=== PATIENT | male | born 1980 | race Two or more races ===

== ENCOUNTER 2017-01-08 07:35 | Emergency (ER) | payer OTHER ==
[~2017-01-08] VITALS: Ht 172.7 cm; Wt 80.3 kg
[2017-01-08 07:39] VITALS: BP 120/74
--- NOTE | 2017-01-08 07:48 | NUR ---
PATIENT PRESENTS TO ED WITH C/O COUGH, SORE THROAT, LEFT EAR ACHE X2 DAYS'. DENIES N/V/D; SKIN IS PINK/WARM/DRY; AAOX4 WITH EVEN AND STEADY GAIT; LUNGS CLEAR BL; HR EVEN AND REGULAR; PT DENIES ANY FEVER, CP, SOB AT THIS TIME. PATIENT POSITIONED FOR COMFORT; HOB ELEVATED; BEDRAILS UP X2; BED DOWN. NEEDS ATTENDED.SAFETY PRECAUTION INSTITUTED.ER MADE AWARE OF PT STATUS.WILL CONTINUE TO MONITOR PT.
--- NOTE | 2017-01-08 07:48 | NUR ---
PT TAKEN TO BED 4.
--- NOTE | 2017-01-08 08:06 | NUR ---
Patient discharged with v/s stable. Written and verbal after care instructions given and explained. Patient alert, oriented and verbalized understanding of instructions. Ambulatory with steady gait. All questions addressed prior to discharge. ID band removed. Patient advised to follow up with PMD. Rx of MOTRIN,SUDAFED AND CORTISPORIN OTIC SUSPENSION. given. Patient educated on indication of medication including possible reaction and side effects. Opportunity to ask questions provided and answered.
[2017-01-08 08:07] VITALS: BP 103/75
== END 2017-01-08 08:06 | disposition home or self-care (01) ==
LOC: MED 07:35
DX: H60.92 Unspecified otitis externa, left ear (principal); J06.9 Acute upper respiratory infection, unspecified

== ENCOUNTER 2017-09-06 09:37 | Outpatient (CLI) | payer OTHER | END 2017-09-06 20:49 | disposition home or self-care (01) | LOC: MLB 09:37 | PROVIDERS: ATTEND Family Medicine | DX: R35.8 Other polyuria (principal); L25.9 Unspecified contact dermatitis, unspecified cause; R68.89 Other general symptoms and signs; J30.9 Allergic rhinitis, unspecified; L29.9 Pruritus, unspecified ==

== ENCOUNTER 2019-07-19 11:12 | Outpatient (CLI) | payer OTHER | END 2019-07-19 22:08 | disposition home or self-care (01) | LOC: MUS 11:12 | DX: R13.10 Dysphagia, unspecified (principal) | CPT/HCPCS: 36415; 74220; 86677 ==

== ENCOUNTER 2023-03-02 11:46 | Emergency (ER) | payer OTHER ==
[~2023-03-02] VITALS: Ht 172.7 cm; Wt 67.6 kg
--- NOTE | 2023-03-02 11:57 | NUR ---
Patient ambulated to bed 4.
[2023-03-02 11:58] VITALS: BP 115/68
--- NOTE | 2023-03-02 12:02 | NUR ---
received in bed 4 bibs for right shoulder and left foot pain x 4 months. no fall or trauma. csmpt intact. no swelling or redness. aao x4. resp even and nonlabored. vss. ambualtory
[2023-03-02] MEDS ORDERED: LID5T TP (13:08)
[2023-03-02] MEDS ORDERED: IBUP-2213 PO (13:08)
[2023-03-02 13:23] VITALS: BP 128/74
--- NOTE | 2023-03-02 13:25 | NUR ---
Patient discharged with v/s stable. Written and verbal after care instructions given and explained. Patient verbalized understanding. Ambulatory with steady gait. All questions addressed prior to discharge. Advised to follow up with PMD.
--- NOTE | 2023-03-02 13:54 | NUR ---
CD COSIGNED AND GIVEN TO PT AT THIS TIME
== END 2023-03-02 13:23 | disposition home or self-care (01) ==
LOC: MED 11:46
DX: S46.911A Strain of unspecified muscle, fascia and tendon at shoulder and upper arm level, right arm, initial encounter (principal); S96.812A Strain of other specified muscles and tendons at ankle and foot level, left foot, initial encounter; J45.909 Unspecified asthma, uncomplicated; Z79.899 Other long term (current) drug therapy; X58.XXXA Exposure to other specified factors, initial encounter; Y93.89 Activity, other specified; Y92.89 Other specified places as the place of occurrence of the external cause; Y99.8 Other external cause status
CPT/HCPCS: 73030; 73610; 99284